=== PATIENT | female | born 1970 | race Caucasian/White ===

== ENCOUNTER 2018-08-19 08:55 | Inpatient (IN) | payer OTHER ==
[2018-08-19] VITALS (31 sets, daily range): BP systolic 75–125; BP diastolic 47–76; PULSE 56–94; RESP 16–20; Ht 152.4 cm; Wt 83.4 kg
[~2018-08-19] VITALS: Ht 152.4 cm; Wt 83.4 kg
[~2018-08-19 08:55] MED LIST: ALPR1TAB7 PO; ATEN50TA PO; HYDR25TA6 PO; SERT50TA6 PO
[2018-08-19] MEDS ORDERED: ZOLP10TA PO (09:23)
[2018-08-19] MEDS ORDERED: MELO15TA30 ORAL (09:23)
[2018-08-19] MEDS ORDERED: DULO60CA59 PO (09:23)
[2018-08-19] MEDS ORDERED: AMLO-147 ORAL (09:23)
[2018-08-19] MEDS ORDERED: METO-429 ORAL (09:23)
[2018-08-19] MEDS ORDERED: CLON0.5T14 PO (09:23)
[2018-08-19] MEDS: LACTATED RINGER'S 1,000 ML IV SCH (10:00)
[2018-08-19] MEDS ORDERED: BACITRACIN 50000 UNITS INJ ONE (10:12)
[2018-08-19] MEDS ORDERED: TRANEXAMIC ACID 1GM/100ML(PMX) 100 ML ONE (10:18)
[2018-08-19] MEDS ORDERED: POLYMYXIN B 500000 UNIT INJ ONE (10:18)
[2018-08-19] MEDS ORDERED: POLYMYXIN/BACITRACIN 1L IRRIG ONE (10:18)
--- NOTE | 2018-08-19 10:40 | HPN ---
Date/Time of Note Date/Time of Note DATE: 08/19/18 TIME: 10:40 Interval H&P Admission Note Pt. seen H&P reviewed: No system changes GAIL BRIONES MD August 19, 2018 10:40
--- NOTE | 2018-08-19 10:50 | PREAC ---
Date/Time of Note Date/Time of Note DATE: 08/19/18 TIME: 10:48 Anesthesia Eval and Record Evaluation Time Pre-Procedure Interview DATE: 08/19/18 TIME: 10:48 Age 48 Sex female NPO: 8 hrs Preoperative diagnosis left knee osteoarthritis Planned procedure left total knee replacement Past Medical History Past Medical History: Includes Cardio: HTN GI: Obesity Psych: Anxiety Surgery & Anesthesia Issues No known issue Meds Anticoagulation: No Beta Danelle within 24 hr: Yes Reported Medications Clonazepam* (Clonazepam*) 0.5 Mg Tablet, 0.5 MG PO DAILY, TAB 08/19/18 Zolpidem Tartrate* (Ambien*) 10 Mg Tablet, 10 MG PO QHS PRN for INSOMNIA, TAB 08/19/18 Meloxicam* (Mobic*) 15 Mg Tablet, 1 TAB ORAL DAILY 08/19/18 Duloxetine Hcl* (Duloxetine Hcl*) 60 Mg Capsule.dr, 60 MG PO DAILY, #30 CAP 08/19/18 Amlodipine Besylate* (Amlodipine Besylate*) 10 Mg Tablet, 1 TAB ORAL QHS 08/19/18 Metoprolol Tartrate* (Lopressor*) 50 Mg Tab, 1 TAB ORAL BID 08/19/18 Sertraline Hcl* (Sertraline Hcl*) 50 Mg Tablet, 50 MG PO DAILY, TAB 01/04/14 Hydrochlorothiazide* (Hydrochlorothiazide*) 25 Mg Tab, 25 MG PO DAILY, TAB 01/04/14 Atenolol* (Atenolol*) 50 Mg Tablet, 50 MG PO DAILY, TAB 01/04/14 Alprazolam* (Alprazolam*) 1 Mg Tablet, 1 MG PO HS PRN for ANXIETY, TAB 01/04/14 Current Medications Lactated Ringer's 1,000 ml @ 20 mls/hr Q24H IV ; Start 08/19/18 at 10:00 Meds reviewed: Yes Allergies Coded Allergies: No Known Allergy (Unverified , 08/19/18) Allergies Reviewed: Yes Labs/Studies Labs Reviewed: Reviewed by anesthesiologist Blood Bank Test 08/19/18 09:25 Blood Type O POSITIVE test: Negative Studies: ECG, CXR Pre-procedure Exam Last vitals Vital Signs Date Temp Pulse Resp B/P (MAP) Pulse Ox O2 O2 Flow FiO2 Time Delivery Rate 5/17/19 97.8 74 16 125/73 98 Room Air 09:47 (90) Airway: Adequate mouth opening, Adequate thyromental dist Mallampati: Mallampati II Teeth: Normal Lung: Normal Heart: Normal ASA Physical Status ASA physical status: 2 Emergency: None Planned Anesthetic General/MAC: LMA Neuraxial: Spinal Nerve block: Femoral (left) Planned Pain Management Single shot nerve block, Parenteral pain med Pre-operative Attestations Prior to commencing anesthesia and surgery, the patient was re-evaluated, there was verification of: *The patient's identity *The results of appropriate recent lab work and preoperative vital signs *The above evaluation not changing prior to induction *Anesthetic plan, risk benefits, alternative and complications discussed with patient/family; questions answered; patient/family understands, accepts and wishes to proceed. ISABELLA FERRARA August 19, 2018 10:50
[2018-08-19] MEDS ORDERED: LIDOCAINE 2% (SDV) 5 ML INJ ONE (10:55)
[2018-08-19] MEDS ORDERED: PROPOFOL 20 ML ONE (10:55)
[2018-08-19] MEDS ORDERED: ROCURONIUM 50 MG INJ ONE ×2 (10:56→10:57)
[2018-08-19] MEDS ORDERED: FENTAnyl 50 MCG/ML VIAL ONE (10:58)
[2018-08-19] MEDS ORDERED: MIDAZOLAM 1 MG/ML 2 ML INJ ONE (10:58)
[2018-08-19] MEDS ORDERED: CEFAZOLIN 1 GM INJ ONE (11:35)
[2018-08-19] MEDS ORDERED: DEXAMETHASONE 4 MG/ML 5 ML INJ ONE (13:03)
[2018-08-19] MEDS ORDERED: ONDANSETRON 4 MG INJ ONE (13:03)
[2018-08-19] MEDS ORDERED: BUPIVACAINE 0.5% (SDV) 30 ML INJ ONE (13:31)
[2018-08-19] MEDS ORDERED: GLYCOPYRROLATE 0.4 MG INJ ONE (13:33)
[2018-08-19] MEDS ORDERED: NEOSTIGMINE 3 MG/3 ML SYRINGE ONE (13:33)
[2018-08-19] MEDS ORDERED: DIPHENHYDRAMINE 50 MG INJ IV PRN (14:00)
[2018-08-19] MEDS ORDERED: KETOROLAC 30 MG INJ IV PRN (14:00)
[2018-08-19] MEDS ORDERED: METOCLOPRAMIDE 10 MG INJ IV PRN (14:00)
[2018-08-19] MEDS ORDERED: HYDROmorphONE 1 MG/5 ML IV SYRINGE IV PRN ×3 (14:00)
[2018-08-19] MEDS ORDERED: FENTAnyl 50 MCG/ML VIAL IV PRN ×3 (14:00)
[2018-08-19] MEDS ORDERED: LABETALOL HCL 20MG INJ IV PRN (14:00)
[2018-08-19] MEDS ORDERED: MEPERIDINE 25 MG INJ IV PRN (14:00)
[2018-08-19] MEDS ORDERED: ALBUTEROL 0.083% (NEB) 2.5 MG/3 ML AMP HHN PRN (14:00)
[2018-08-19] MEDS ORDERED: EPHEDrine 25 MG/5 ML SYG IV PRN (14:00)
[2018-08-19] MEDS ORDERED: ONDANSETRON 4 MG INJ IV PRN (14:00)
[2018-08-19] MEDS ORDERED: hydrALAzine 20 MG INJ IV PRN (14:00)
--- NOTE | 2018-08-19 14:00 | PAC ---
Date/Time of Note Date/Time of Note DATE: 08/19/18 TIME: 13:59 Post-Anesthesia Notes Post-Anesthesia Note Last documented vital signs Vital Signs Date Temp Pulse Resp B/P (MAP) Pulse Ox O2 O2 Flow FiO2 Time Delivery Rate 08/19/18 97.8 74 16 125/73 98 Room Air 1359 (90) Activity: WNL Respiratory function: WNL Cardiovascular function: WNL Mental status: Baseline Pain reasonably controlled: Yes Hydration appropriate: Yes Nausea/Vomiting absent: Yes ISABELLA FERRARA August 19, 2018 14:00
--- NOTE | 2018-08-19 14:26 | OPR ---
Date/Time of Note Date/Time of Note DATE: 08/19/18 TIME: 14:24 Operative Report Preoperative Diagnosis Left knee osteoarthritis Postoperative Diagnosis Same Operation/Procedure Performed Left total knee replacement Surgeon see signature line [employer] Rin Escoto Anesthesia Type: general, spinal, other (Abductor canal block) Estimated Blood Loss: 100 - 150 ml's Transfusion none Specimen Bone Grafts/Implants Dori implants Femur size 2 Tibia size 1 Insert 11 mm Patella A29 mm Complications none Pt Condition Post Procedure: stable Disposition: PACU Procedure Description INDICATIONS FOR PROCEDURE: [This] is a 48-year-old female who has had pr ogressive pain in the left knee. The patient has failed nonoperative treatment and now presents for elective total knee replacement. Risks and benefits were discussed with the patient, risks including but not limited to infection, bleeding, blood clots, dislocation, fracture, knee stiffness, nerve damage, blood vessel damage, along with other medical, anesthetic and surgical com plications were discussed. Informed consent was obtained. DESCRIPTION OF PROCEDURE: The patient's correct extremity was identified in the preoperative area. The patient was brought back to the operating room where a spinal anesthetic was placed followed by an adductor canal block. The correct extremity was then prepped and draped in the standard sterile manner. A timeout was performed. Esmarch was used to exsanguinate. The thigh tourniquet was inflated to 250 mmHg. I then made a standard midline incision for approaching the knee. I went through skin and subcutaneous tissue, made a medial parapatellar arthrotomy. Then, flexed the knee and introduced an intramedullary alignment guide. Distal femoral cut was made and then the extramedullary alignment guide was used to make the tibial cut. Flexion and extension gaps were checked. There were symmetric. The knee went from full extension to full flexion. I then turned my attention to the patella. I used an [id number] mill type cutting guide, cut the patellar to appropriate thickness and sized the patella. I then trialed the patella. The patella tracked well without any external pressure. I then made the peg holes for the femoral trial. Punched the tibia. I took out all trial components. Thoroughly irrigated the bony surfaces, dried them with a lap sponge. I then proceeded to cement the tibia, femur and patellar components. A trial insert was used till the cement hardened. After the cement hardened, I thoroughly irrigted the knee. The knee was well balanced. I then let down the tourniquet, obtained adequate hemostasis. I thoroughly irrigated the knee. I then impacted the appropriate all poly insert until it locked into place and I had full range of motion with just a jog of opening with varus and valgus stress. I then turned my attention to closure. I closed the medial parapatellar arthrotomy with interrupted #1 Vicryl, subcutaneous tissue was closed with 2-0 Vicryl, skin with kerrie. Dry sterile dressings were applied. The patient had good perfusion to her foot with a 2+ dorsalis pedis pulse. She was then extubated and transported to recovery in stable condition. GAIL BRIONES MD August 19, 2018 14:26
[2018-08-19] MEDS ORDERED: NA PHOSPHATE/BIPHOS 133 ML ENEMA PR PRN (14:30)
[2018-08-19] MEDS: ONDANSETRON 4 MG INJ IV SCH ×2 (14:30→20:35)
[2018-08-19] MEDS ORDERED: oxyCODONE 5 MG TAB PO PRN (14:30)
[2018-08-19] MEDS ORDERED: NALOXONE (0.4 MG/ML) INJ IV PRN (14:30)
[2018-08-19] MEDS ORDERED: NACL 0.9% 3 ML SYG IV SCH (14:30)
[2018-08-19] MEDS ORDERED: DOCUSATE SODIUM 100 MG CAP PO ONE (14:30)
[2018-08-19] MEDS ORDERED: SENNA/DOCUSATE NA (8.6MG/50MG) TAB PO PRN (14:30)
[2018-08-19] MEDS ORDERED: BISACODYL 10 MG SUPP PR PRN (14:30)
[2018-08-19] MEDS: CEFAZOLIN 2 GM/50 ML (PMX) 50 ML IVPB SCH ×2 (14:44→22:00)
[2018-08-19] MEDS: SOD CHLORIDE 0.9% 1,000 ML IV SCH (16:06)
[2018-08-19] MEDS ORDERED: ALPRAZOLAM 1 MG TAB PO PRN (17:00)
[2018-08-19] MEDS: HYDROmorphONE 1 MG/ML SYG IV PRN (17:57)
[2018-08-19] MEDS: METOPROLOL 50 MG TAB PO SCH (20:36)
[2018-08-19] MEDS: clonAZEPAM 0.5 MG TAB PO SCH (20:36)
[2018-08-19] MEDS: AMLODIPINE 10 MG TAB PO SCH (20:37)
[2018-08-19] MEDS: oxyCODONE 5 MG TAB PO PRN (21:56)
[2018-08-19] MEDS: ZOLPIDEM 5 MG TAB PO PRN (22:36)
[2018-08-20 00:10] VITALS: BP 113/65; PULSE 91; RESP 20
[2018-08-20] MEDS: ONDANSETRON 4 MG INJ IV SCH ×2 (01:42→09:03)
[2018-08-20] MEDS: SOD CHLORIDE 0.9% 1,000 ML IV SCH ×2 (02:51→20:18)
[2018-08-20 03:01] VITALS: BP 116/70; PULSE 88; RESP 18
[2018-08-20] MEDS: PANTOPRAZOLE (EC) 40 MG TAB PO SCH (05:16)
[2018-08-20] MEDS: oxyCODONE 5 MG TAB PO PRN ×4 (05:28→19:49)
[2018-08-20] MEDS: CEFAZOLIN 2 GM/50 ML (PMX) 50 ML IVPB SCH (06:01)
[2018-08-20 07:17] VITALS: BP 117/67; PULSE 83; RESP 16
[2018-08-20] MEDS ORDERED: HYDROCHLOROTHIAZIDE 25 MG TAB PO SCH (09:00)
[2018-08-20] MEDS ORDERED: clonAZEPAM 0.5 MG TAB PO SCH (09:00)
[2018-08-20] MEDS ORDERED: ATENOLOL 50 MG TAB PO SCH (09:00)
[2018-08-20] MEDS: DOCUSATE SODIUM 100 MG CAP PO SCH ×2 (09:03→21:10)
[2018-08-20] MEDS: METOPROLOL 50 MG TAB PO SCH ×2 (09:04→21:12)
[2018-08-20] MEDS: DULOXETINE 30 MG CAP DR PO SCH (09:04)
[2018-08-20] MEDS: ENOXAPARIN 30 MG/0.3 ML SYG SC SCH ×2 (09:10→21:14)
--- NOTE | 2018-08-20 09:41 | PN ---
Date/Time of Note Date/Time of Note DATE: 08/20/18 TIME: 09:39 Assessment/Plan Lines/Catheters IV Catheter Type (from Nrsg): Peripheral IV Assessment/Plan Assessment/Plan POD 1 s/p Left TKA Doing well OOB with PT for gait training, CPM Lovenox, SCD's for DVT prophylaxis Incentive spirometer use D/c Pang Discharge planning. Subjective 24 Hr Interval Summary Pain well controlled. In CPM machine. Exam/Review of Systems Vital Signs Vitals Vital Signs Date Temp Pulse Resp B/P (MAP) Pulse Ox O2 O2 Flow FiO2 Time Delivery Rate 08/20/18 98.2 83 16 117/67 94 Nasal 07:17 (84) Cannula 08/20/18 2.0 00:10 Intake and Output 08/19/18 08/19/18 08/20/18 1515:00 23:00 07:00 IntakeIntake Total 1800 ml 290 ml 2020 ml OutputOutput Total 190 ml 2500 ml BalanceBalance 1610 ml 290 ml -480 ml Exam Free Text/Dictation Left Knee Dressing c/d/i. Calf soft and non tender Intact motor and sensory function in foot Foot warm Results Result Diagram: 08/20/18 0453 GAIL BRIONES MD August 20, 2018 09:41
[2018-08-20] MEDS: LACTATED RINGER'S 1,000 ML IV SCH (10:00)
--- NOTE | 2018-08-20 11:58 | HP ---
Date/Time of Note Date/Time of Note DATE: 08/20/18 TIME: 11:56 Assessment/Plan VTE Prophylaxis Risk score (from Ns)>0 risk: 7 SCD applied (from Ns): Yes Pharmacological prophylaxis: LMWH Lines/Catheters IV Catheter Type (from Nrsg): Peripheral IV Assessment/Plan Hospital Course 1) knee osteoarthritis - s/p knee replacement - pain medication - physical therapy Result Diagram: 08/20/18 0453 Results 24hrs Laboratory Tests Test 08/20/18 04:53 08/20/18 06:53 White Blood Count 12.6 #H Red Blood Count 3.86 L Hemoglobin 10.2 L Hematocrit 31.8 L Mean Corpuscular Volume 82.4 Mean Corpuscular Hemoglobin 26.4 L Mean Corpuscular Hemoglobin Concent 32.1 Red Cell Distribution Width 15.2 H Platelet Count 233 Mean Platelet Volume 10.6 #H Immature Granulocytes % 0.600 H Neutrophils % 85.4 H Lymphocytes % 8.2 L Monocytes % 5.7 Eosinophils % 0.0 Basophils % 0.1 Nucleated Red Blood Cells % 0.0 Immature Granulocytes # 0.070 H Neutrophils # 10.8 H Lymphocytes # 1.0 Monocytes # 0.7 Eosinophils # 0.0 Basophils # 0.0 Nucleated Red Blood Cells # 0.0 Lab Scanned Report REFERENCE LAB HPI/ROS Admit Date/Time Admit Date/Time August 19, 2018 at 08:55 Hx of Present Illness Patient with hypertension and osteoarthritis is here for knee replacement. Patient had procedure and is doing well. PMH/Family/Social Past Medical History Medical History: hypertension Medications Current Medications Lactated Ringer's 1,000 ml @ 20 mls/hr Q24H IV ; Start 08/19/18 at 10:00 Sodium Chloride 1,000 ml @ 80 mls/hr [id number] IV Last administered on 08/20/18at 02:51; Admin Dose 80 MLS/HR; Start 08/19/18 at 14:19 IV Flush (NS 3 ml) 3 ml PER PROTOCOL IV ; Start 08/19/18 at 14:30 Oxycodone HCl (Roxicodone) 15 mg Q4H PRN PO .PAIN; Start 08/19/18 at 14:30 Oxycodone HCl (Roxicodone) 10 mg Q4H PRN PO .PAIN Last administered on 08/20/18at 09:19; Admin Dose 10 MG; Start 08/19/18 at 14:30 Oxycodone HCl (Roxicodone) 5 mg Q4H PRN PO .PAIN; Start 08/19/18 at 14:30 Hydromorphone HCl (Dilaudid) 1 mg Q3H PRN IV .BREAKTHROUGH PAIN Last administered on 08/19/18at 17:57; Admin Dose 1 MG; Start 08/19/18 at 14:30 Pantoprazole (Protonix Tab) 40 mg DAILY@06 PO Last administered on 08/20/18at 05:16; Admin Dose 40 MG; Start 08/20/18 at 06:00 Docusate Sodium (Colace) 200 mg BID PO Last administered on 08/20/18at 09:03; Admin Dose 200 MG; Start 08/20/18 at 09:00; Stop 08/23/18 at 08:59 Simethicone (Mylicon) 80 mg TID PRN PO .GAS; Start 08/19/18 at 14:30 Senna/Docusate Sodium (Senokot-S) 2 tab BID PRN PO .CONSTIPATION; Start 08/19/18 at 14:30 Magnesium Hydroxide (Milk Of Mag) 30 ml HS PRN PO .CONSTIPATION; Start 08/19/18 at 14:30 Bisacodyl (Dulcolax Supp) 10 mg DAILY PRN ID .CONSTIPATION; Start 08/19/18 at 14:30 Sodium Biphosphate/ Sodium Phosphate (Fleet Enema) 133 ml DAILY PRN ID .CONSTIPATION; Start 08/19/18 at 14:30 Naloxone HCl (Narcan) 0.2 mg Q2M PRN IV .RESP RATE; Start 08/19/18 at 14:30 Enoxaparin Sodium (Lovenox) 30 mg Q12 SC Last administered on 08/20/18at 09:10; Admin Dose 30 MG; Start 08/20/18 at 09:00 Duloxetine HCl (Cymbalta) 60 mg DAILY PO Last administered on 08/20/18at 09:04; Admin Dose 60 MG; Start 08/20/18 at 09:00 Zolpidem Tartrate (Ambien) 10 mg HS PRN PO INSOMNIA Last administered on 08/19/18at 22:36; Admin Dose 10 MG; Start 08/19/18 at 17:00 Clonazepam (Klonopin) 0.5 mg HS PO Last administered on 08/19/18at 20:36; Admin Dose 0.5 MG; Start 08/19/18 at 21:00 Amlodipine Besylate (Norvasc) 10 mg QHS PO Last administered on 08/19/18at 20:37; Admin Dose 10 MG; Start 08/19/18 at 21:00 Metoprolol Tartrate (Lopressor) 50 mg BID PO Last administered on 08/20/18at 09:04; Admin Dose 50 MG; Start 08/19/18 at 21:00 Coded Allergies: No Known Allergy (Unverified , 08/19/18) Social History Smoking Status: Never smoker Exam/Review of Systems Vital Signs Vitals Vital Signs Date Temp Pulse Resp B/P (MAP) Pulse Ox O2 O2 Flow FiO2 Time Delivery Rate 08/20/18 98.2 83 16 117/67 94 Nasal 07:17 (84) Cannula 08/20/18 2.0 00:10 Intake and Output 08/19/18 08/19/18 08/20/18 1414:59 22:59 06:59 IntakeIntake Total 1800 ml 290 ml 2020 ml OutputOutput Total 190 ml 2500 ml BalanceBalance 1610 ml 290 ml -480 ml Exam Constitutional: well developed Head: normocephalic, atraumatic Neck: supple Respiratory: clear to auscultation Cardiovascular: regular rate and rhythm Gastrointestinal: soft, non-tender Extremities: normal pulses ROSALBA BRADEN August 20, 2018 11:58
[2018-08-20] MEDS: MAGNESIUM HYDROXIDE 30ML CUP PO PRN (13:01)
[2018-08-20 14:10] VITALS: BP 106/64; PULSE 81
[2018-08-20 14:42] VITALS: BP 135/72; PULSE 74; RESP 14
[2018-08-20] MEDS: HYDROmorphONE 1 MG/ML SYG IV PRN (15:46)
[2018-08-20 19:44] VITALS: BP 122/63; PULSE 77; RESP 18
[2018-08-20] MEDS: AMLODIPINE 10 MG TAB PO SCH (21:11)
[2018-08-20] MEDS: clonAZEPAM 0.5 MG TAB PO SCH (22:34)
[2018-08-20] MEDS: ZOLPIDEM 5 MG TAB PO PRN (22:34)
[2018-08-21 00:05] VITALS: BP 141/72; PULSE 80; RESP 19
[2018-08-21] MEDS: oxyCODONE 5 MG TAB PO PRN ×4 (02:24→21:12)
[2018-08-21] MEDS: SOD CHLORIDE 0.9% 1,000 ML IV SCH ×2 (03:49→16:19)
[2018-08-21] MEDS: PANTOPRAZOLE (EC) 40 MG TAB PO SCH (06:01)
[2018-08-21] MEDS: MAGNESIUM HYDROXIDE 30ML CUP PO PRN (06:36)
[2018-08-21 07:18] VITALS: BP 101/56; PULSE 85; RESP 15
[2018-08-21] MEDS: METOPROLOL 50 MG TAB PO SCH ×2 (09:00→20:42)
[2018-08-21] MEDS: DOCUSATE SODIUM 100 MG CAP PO SCH ×2 (09:30→21:06)
[2018-08-21] MEDS: DULOXETINE 30 MG CAP DR PO SCH (09:31)
[2018-08-21] MEDS: ENOXAPARIN 30 MG/0.3 ML SYG SC SCH ×2 (09:32→21:06)
[2018-08-21] MEDS: LACTATED RINGER'S 1,000 ML IV SCH (10:00)
--- NOTE | 2018-08-21 12:05 | PN ---
Date/Time of Note Date/Time of Note DATE: 08/21/18 TIME: 12:05 Assessment/Plan VTE Prophylaxis Risk score (from [facility])>0 risk: 9 SCD applied (from Ns): Yes Pharmacological prophylaxis: LMWH Lines/Catheters IV Catheter Type (from [facility]): Peripheral IV Urinary Cath still in place: Yes Reason Cath still needed: skin wounds contaminated by urine Assessment/Plan Hospital Course 1) knee osteoarthritis - s/p knee replacement - pain medication - physical therapy Result Diagram: 08/21/18 0436 Results 24hrs Laboratory Tests Test 08/21/18 04:36 White Blood Count 13.1 H Red Blood Count 3.53 L Hemoglobin 9.3 L Hematocrit 29.9 L Mean Corpuscular Volume 84.7 Mean Corpuscular Hemoglobin 26.3 L Mean Corpuscular Hemoglobin Concent 31.1 L Red Cell Distribution Width 15.9 H Platelet Count 211 Mean Platelet Volume 10.8 H Immature Granulocytes % 0.700 H Neutrophils % 63.3 Lymphocytes % 26.3 Monocytes % 9.2 Eosinophils % 0.0 Basophils % 0.5 Nucleated Red Blood Cells % 0.0 Immature Granulocytes # 0.090 H Neutrophils # 8.3 H Lymphocytes # 3.5 H Monocytes # 1.2 H Eosinophils # 0.0 Basophils # 0.1 Nucleated Red Blood Cells # 0.0 Subjective 24 Hr Interval Summary Free Text/Dictation Patient doing well, able to ambulate Exam/Review of Systems Exam Vitals Vital Signs Date Temp Pulse Resp B/P (MAP) Pulse Ox O2 O2 Flow FiO2 Time Delivery Rate 08/21/18 100.8 85 15 101/56 99 Room Air 07:18 (71) 08/20/18 2.0 00:10 Intake and Output 08/20/18 08/20/18 08/21/18 1515:00 23:00 07:00 IntakeIntake Total 300 ml 1490 ml 480 ml OutputOutput Total 1700 ml 3000 ml BalanceBalance 300 ml -210 ml -2520 ml Constitutional: well developed Head: normocephalic, atraumatic Neck: supple Respiratory: clear to auscultation Cardiovascular: regular rate and rhythm Gastrointestinal: soft, non-tender Extremities: normal pulses Results Results 24hrs Laboratory Tests Test 08/21/18 04:36 White Blood Count 13.1 H Red Blood Count 3.53 L Hemoglobin 9.3 L Hematocrit 29.9 L Mean Corpuscular Volume 84.7 Mean Corpuscular Hemoglobin 26.3 L Mean Corpuscular Hemoglobin Concent 31.1 L Red Cell Distribution Width 15.9 H Platelet Count 211 Mean Platelet Volume 10.8 H Immature Granulocytes % 0.700 H Neutrophils % 63.3 Lymphocytes % 26.3 Monocytes % 9.2 Eosinophils % 0.0 Basophils % 0.5 Nucleated Red Blood Cells % 0.0 Immature Granulocytes # 0.090 H Neutrophils # 8.3 H Lymphocytes # 3.5 H Monocytes # 1.2 H Eosinophils # 0.0 Basophils # 0.1 Nucleated Red Blood Cells # 0.0 Medications Medication Current Medications Lactated Ringer's 1,000 ml @ 20 mls/hr Q24H IV ; Start 08/19/18 at 10:00 Sodium Chloride 1,000 ml @ 80 mls/hr [id number] IV Last administered on 08/20/18at 02:51; Admin Dose 80 MLS/HR; Start 08/19/18 at 14:19 IV Flush (NS 3 ml) 3 ml PER PROTOCOL IV ; Start 08/19/18 at 14:30 Oxycodone HCl (Roxicodone) 15 mg Q4H PRN PO .PAIN; Start 08/19/18 at 14:30 Oxycodone HCl (Roxicodone) 10 mg Q4H PRN PO .PAIN Last administered on at 06:37; Admin Dose 10 MG; Start 08/19/18 at 14:30 Oxycodone HCl (Roxicodone) 5 mg Q4H PRN PO .PAIN; Start 08/19/18 at 14:30 Hydromorphone HCl (Dilaudid) 1 mg Q3H PRN IV .BREAKTHROUGH PAIN Last administered on 08/20/18at 15:46; Admin Dose 1 MG; Start 08/19/18 at 14:30 Pantoprazole (Protonix Tab) 40 mg DAILY@06 PO Last administered on 08/21/18at 06:01; Admin Dose 40 MG; Start 08/20/18 at 06:00 Docusate Sodium (Colace) 200 mg BID PO Last administered on 08/21/18at 09:30; Admin Dose 200 MG; Start 08/20/18 at 09:00; Stop 08/23/18 at 08:59 Simethicone (Mylicon) 80 mg TID PRN PO .GAS Last administered on 08/20/18 14:57; Admin Dose 80 MG; Start 08/19/18 at 14:30 Senna/Docusate Sodium (Senokot-S) 2 tab BID PRN PO .CONSTIPATION Last administered on 08/20/18 16:56; Admin Dose 2 TAB; Start 08/19/18 at 14:30 Magnesium Hydroxide (Milk Of Mag) 30 ml HS PRN PO .CONSTIPATION Last administered on 08/21/18 06:36; Admin Dose 30 ML; Start 08/19/18 at 14:30 Bisacodyl (Dulcolax Supp) 10 mg DAILY PRN AL .CONSTIPATION Last administered on 08/20/18 19:49; Admin Dose 10 MG; Start 08/19/18 at 14:30 Sodium Biphosphate/ Sodium Phosphate (Fleet Enema) 133 ml DAILY PRN AL .CONSTIPATION Last administered on 08/20/18 22:31; Admin Dose 133 ML; Start 08/19/18 at 14:30 Naloxone HCl (Narcan) 0.2 mg Q2M PRN IV .RESP RATE; Start 08/19/18 at 14:30 Enoxaparin Sodium (Lovenox) 30 mg Q12 SC Last administered on 08/21/18 09:32; Admin Dose 30 MG; Start 08/20/18 at 09:00 Duloxetine HCl (Cymbalta) 60 mg DAILY PO Last administered on 08/21/18 09:31; Admin Dose 60 MG; Start 08/20/18 at 09:00 Zolpidem Tartrate (Ambien) 10 mg HS PRN PO INSOMNIA Last administered on 08/20/18 22:34; Admin Dose 10 MG; Start 08/19/18 at 17:00 Clonazepam (Klonopin) 0.5 mg HS PO Last administered on 08/20/18 22:34; Admin Dose 0.5 MG; Start 08/19/18 at 21:00 Amlodipine Besylate (Norvasc) 10 mg QHS PO Last administered on 08/20/18 21:11; Admin Dose 10 MG; Start 08/19/18 at 21:00 Metoprolol Tartrate (Lopressor) 50 mg BID PO Last administered on 5/18/19at 21:12; Admin Dose 50 MG; Start 08/19/18 at 21:00 ROSALBA BRADEN August 21, 2018 12:05
[2018-08-21 14:39] VITALS: BP 108/63; PULSE 104; RESP 16
[2018-08-21 20:06] VITALS: BP 109/63; PULSE 117; RESP 18
[2018-08-21] MEDS: AMLODIPINE 10 MG TAB PO SCH (20:43)
[2018-08-21] MEDS: clonAZEPAM 0.5 MG TAB PO SCH (21:06)
[2018-08-21 21:30] VITALS: PULSE 95
[2018-08-21] MEDS: ZOLPIDEM 5 MG TAB PO PRN (21:50)
[2018-08-22] MEDS: oxyCODONE 5 MG TAB PO PRN ×4 (01:26→15:33)
[2018-08-22 01:46] VITALS: BP 111/62; PULSE 119; RESP 18
[2018-08-22 02:00] VITALS: PULSE 92
[2018-08-22] MEDS: SOD CHLORIDE 0.9% 1,000 ML IV SCH (04:14)
[2018-08-22] MEDS: PANTOPRAZOLE (EC) 40 MG TAB PO SCH (05:55)
[2018-08-22 06:13] VITALS: PULSE 92
[2018-08-22 07:19] VITALS: BP 122/68; PULSE 82; RESP 19
[2018-08-22] MEDS: DOCUSATE SODIUM 100 MG CAP PO SCH (08:37)
[2018-08-22] MEDS: METOPROLOL 50 MG TAB PO SCH (08:38)
[2018-08-22] MEDS: DULOXETINE 30 MG CAP DR PO SCH (08:38)
[2018-08-22] MEDS: ENOXAPARIN 30 MG/0.3 ML SYG SC SCH (08:39)
[2018-08-22] MEDS ORDERED: HYDR-4011 PO (15:07)
[2018-08-22] MEDS ORDERED: DOCU-144 PO (15:07)
[2018-08-22] MEDS ORDERED: ASPI-535 PO (15:07)
[2018-08-22] MEDS ORDERED: PANT40TA4 PO (15:07)
[2018-08-22 15:25] VITALS: BP 128/70; PULSE 80; RESP 18
--- NOTE | 2018-08-25 22:53 | DS ---
Date/Time of Note Date/Time of Note DATE: 08/25/18 TIME: 22:49 Discharge Summary Admission/Discharge Info Admit Date/Time August 19, 2018 at 08:55 Discharge Date/Time August 22, 2018 at 15:46 Hx of Present Illness Patient with hypertension and osteoarthritis is here for knee replacement. Patient had procedure and is doing well. Hospital Course Patient discharged home with home health PT services -Left knee osteoarthritis. S/p Left total knee replacement by Dr Santos. Continue aspirin. -Hypertension -Anxiety Plan of care discussed with Dr. Hurt. Home Meds Active Scripts Hydrocodone/Acetaminophen ([place] 5-325 Tablet) 1 Each Tablet, 1 EACH PO Q4, #30 TAB Prov:LUCA HUSTON 08/22/18 Aspirin Ec (Aspir 81) 81 Mg Tablet., 81 MG PO BID WITH MEALS for 28 Days, #30 TAB Prov:LUCA HUSTON 08/22/18 Pantoprazole* (Pantoprazole*) 40 Mg Tablet., 40 MG PO DAILY@06 for 30 Days Prov:LUCA HUSTON 08/22/18 Docusate Sodium* (Colace*) 100 Mg Capsule, 200 MG PO BID for 14 Days, CAP Prov:LUCA HUSTON 08/22/18 Reported Medications Clonazepam* (Clonazepam*) 0.5 Mg Tablet, 0.5 MG PO DAILY, TAB 08/19/18 Zolpidem Tartrate* (Ambien*) 10 Mg Tablet, 10 MG PO QHS PRN for INSOMNIA, TAB 08/19/18 Meloxicam* (Mobic*) 15 Mg Tablet, 1 TAB ORAL DAILY 08/19/18 Duloxetine Hcl* (Duloxetine Hcl*) 60 Mg Capsule.dr, 60 MG PO DAILY, #30 CAP 08/19/18 Amlodipine Besylate* (Amlodipine Besylate*) 10 Mg Tablet, 1 TAB ORAL QHS 08/19/18 Metoprolol Tartrate* (Lopressor*) 50 Mg Tab, 1 TAB ORAL BID 08/19/18 Sertraline Hcl* (Sertraline Hcl*) 50 Mg Tablet, 50 MG PO DAILY, TAB 01/04/14 Alprazolam* (Alprazolam*) 1 Mg Tablet, 1 MG PO HS PRN for ANXIETY, TAB 01/04/14 Discontinued Reported Medications Hydrochlorothiazide* (Hydrochlorothiazide*) 25 Mg Tab, 25 MG PO DAILY, TAB 01/04/14 Atenolol* (Atenolol*) 50 Mg Tablet, 50 MG PO DAILY, TAB 01/04/14 Follow-up Plan f/up with Dr Santos in 2 weeks. Primary Care Provider Not On Staff Doctor Time spent on discharge: > 30 minutes LUCA HUSOTN August 25, 2018 22:53
== END 2018-08-22 15:46 | disposition home health service (06) | DRG 470 ==
LOC: REC 08:55 → MS1 15:51
PROVIDERS: ADMIT Specialist; ATTEND Specialist
PROC: 0SRD0J9 Replacement of Left Knee Joint with Synthetic Substitute, Cemented, Open Approach (ICD-10-PCS; principal; 2018-08-19 11:00)
DX: M17.12 Unilateral primary osteoarthritis, left knee (principal); I10 Essential (primary) hypertension; E66.9 Obesity, unspecified; Z68.35 Body mass index [BMI] 35.0-35.9, adult; F41.9 Anxiety disorder, unspecified
CPT/HCPCS: 71045; 80048; 85025; 86900; 86901; 87081; 87086; 88304; 88311; 97110; 97116; 97161; 97530; C1713; C1776; J0690; J1100; J1170; J1650; J2250; J2405; J2710; J3010; J7030; J7120